=== PATIENT | male | born 1945 | race Caucasian/White ===

== ENCOUNTER 2024-08-17 15:59 | Emergency (ER) | payer MEDICARE, OTHER, MEDICAID, SELFPAY ==
[2024-08-17 16:00] VITALS: BP 158/70; PULSE 72; RESP 17; TEMP 36.5; O2SAT 100
--- NOTE | 2024-08-17 16:09 | ED_ITS ---
Documented by User: Gerardo Mccollum DO 08/18/24 06:59 HPI - General Adult General: Chief complaint: Fall Stated complaint: fall, lac Time Seen by Provider: 08/17/24 16:03 History of Present Illness: 79-year-old with a history of dementia f ell at the nursing comes in he has a 5 cm laceration on the left forehead. No report of loss conscious no vomiting he is not on any anticoagulants. Has severe dementia and is not able to articulate anything that is sensible. Related Data Home Medications Medication Instructions Recorded Confirmed citalopram 40 mg tablet 40 mg PO DAILY 05/02/21 05/02/21 magnesium 200 mg tablet 200 mg PO DAILY 05/02/21 05/02/21 metformin 500 mg tablet 500 mg PO DAILY 05/02/21 05/02/21 omeprazole magnesium 20 mg 20 mg PO DAILY 05/02/21 05/02/21 tablet,delayed release (Prilosec OTC) tamsulosin 0.4 mg capsule 0.4 mg PO DAILY 05/02/21 05/02/21 Allergies Allergy/AdvReac Type Severity Reaction Status Date / Time ciprofloxacin [From Cipro] Allergy Unknown Verified 05/02/21 07:34 diphenhydramine Allergy Unknown Verified 05/02/21 07:34 [From Benadryl] PFSH ED PFSH: Medical History CA of prostate Balanitis History of radiation therapy Surgical History History of carpal tunnel surgery History of vasectomy History of cataract surgery History of appendectomy Social History Smoking and tobacco/nicotine status: former use of tobacco/nicotine Alcohol intake: never Substance/Drug Use: never Marital status: Current occupational status: employed and retired Physical Exam Const: ORIENTATION/CONSCIOUSNESS: Yes awake HENMT: COMMON NORMALS: normocephalic and hearing grossly normal bilaterally HEAD & SCALP: normocephalic OTHER: 5 cm forehead laceration slight gaping b leeding easily controlled with direct pressure Resp: COMMON NORMALS: normal respiratory effort, No retractions, No use of accessory muscles and clear to auscultation bilaterally AUSCULTATION: clear to auscultation bilaterally Cardio: COMMON NORMALS: regular rate, regular rhythm and No murmurs present (Cardio) RATE: regular rate RHYTHM: regular rhythm GI: COMMON NORMALS: Soft to palpation and No hepatosplenomegaly present AUSCULTATION: Yes normoactive bowel sounds PALPATION: Yes Soft to palpation, No Tenderness to palpation present (GI), No Guarding due to palpation present (GI) and Yes No hepatosplenomegaly present Extremity: COMMON NORMALS: normal to inspection, capillary refill normal, no clubbing, cyanosis or edema, no calf tenderness and no pedal edema Skin: COMMON NORMALS: no rashes or lesions noted GENERAL SKIN EXAM: no rashes or lesions noted Procedures Laceration Laceration 1: Site: face Side (If applicable): left Size (cm): 5 Description: linear Depth: simple, single layer Local Anesthetic: with epi Amount of anesthesia used (mL): 3 Pre-repair: wound explored and irrigated extensively Skin layer closed with: nylon Size (cm): 5-0 Number of sutures: 1 Technique: running Course Vital Signs: Vital signs: Vital Signs Temperature 97.7 F 08/17/24 16:00 Pulse Rate 71 08/17/24 22:00 Respiratory Rate 17 08/17/24 16:00 Blood Pressure 124/70 08/17/24 22:00 Pulse Oximetry 96 08/17/24 22:00 Oxygen Delivery Me thod Room Air 08/17/24 17:07 MDM - General Adult Medical Decision Making Laceration repaired. CT head and neck are pending. Discussed with Dr. Amaya he will follow-up on the discharge once the CT head and neck are completed and reviewed. Discussed the CT scan with Dr. Gomze neurosurgeon at [facility] he was able to compare the CT scan with 1 done approximately year ago he said he had a chronic subdural hematoma then although was slightly smaller. He says he has lots of room for expansion and this is a very mild midline shift. He states no further treatment needed just observation. If desired he can see him in the clinic but he would not admit him for observation in the hospital. Medical Records I reviewed the patient's medical records. Lab Data I reviewed the patient's lab results. Radiology Impressions Cervical Spine CT 08/17/24 16:14 IMPRESSION: No evidence of acute fracture. Head CT 08/17/24 16:14 IMPRESSION: 1. Chronic 12 mm left subdural hematoma with mild mass effect including 4 mm of [id number]-[id number] midline shift. 2. Senescent changes. Discharge Plan Discharge Patient Disposition: Home Clinical Impression: Face lacerations, Fall, Chronic subdural hematoma Condition: Stable Prescriptions: No Action citalopram 40 mg tablet 40 mg PO DAILY magnesium 200 mg tablet 200 mg PO DAILY tamsulosin 0.4 mg capsule 0.4 mg PO DAILY metformin 500 mg tablet 500 mg PO DAILY omeprazole magnesium [Prilosec OTC] 20 mg tablet,delayed release (DR/EC) 20 mg PO DAILY Discharge Orders: Discharge ED (Routine); Ordered 08/17/24 Ordered By: Gerardo Mccollum Referrals: Barron Monet [Primary Care Provider] - Discharge Diet: Usual diet Discharge Activity: Resume usual activity Patient Instructions: Opioid Safety, Pain Management Activity Restrictions/Additional Instructions: Thank you for choosing [facility] for your healthcare needs today. It is very important that you follow up as instructed or that you return to the Emergency Department should you have concerns or if your condition changes or worsens in any way. You are seen emergency room after a fall. Laceration of the forehead was sutured that you should be removed in 5 to 7 days. Apply jrca-nul-xrqtvzv topical antibiotic ointment twice a day to the wound until the sutures are remov ed. Coding Level of Care Code ED Perishable Fruit Inspector for Chg Fwd Documented by User: Julio Amaya DO 08/18/24 01:25 HPI - General Adult General: Chief complaint: Fall Stated complaint: fall, lac Time Seen by Provider: 08/17/24 16:03 Related Data Home Medications Medication Instructions Recorded Confirmed citalopram 40 mg tablet 40 mg PO DAILY 05/02/21 05/02/21 magnesium 200 mg tablet 200 mg PO DAILY 05/02/21 05/02/21 metformin 500 mg tablet 500 mg PO DAILY 05/02/21 05/02/21 omeprazole magnesium 20 mg 20 mg PO DAILY 05/02/21 05/02/21 tablet,delayed release (Prilosec OTC) tamsulosin 0.4 mg capsule 0.4 mg PO DAILY 05/02/21 05/02/21 Allergies Allergy/AdvReac Type Severity Reaction Status Date / Time ciprofloxacin [From Cipro] Allergy Unknown Verified 05/02/21 07:34 diphenhydramine Allergy Unknown Verified 05/02/21 07:34 [From Benadryl] PFS ED PFSH: Medical History CA of prostate Balanitis History of radiation therapy Surgical History History of carpal tunnel surgery History of vasectomy History of cataract surgery History of appendectomy Social History Smoking and tobacco/nicotine status: former use of tobacco/nicotine Alcohol intake: never Substance/Drug Use: never Marital status: Current occupational status: employed and retired Course Vital Signs: Vital signs: Vital Signs Temperature 97.7 F 08/17/24 16:00 Pulse Rate 71 08/17/24 22:00 Respiratory Rate 17 08/17/24 16:00 Blood Pressure 124/70 08/17/24 22:00 Pulse Oximetry 96 08/17/24 22:00 Oxygen Delivery Me thod Room Air 08/17/24 17:07 MDM - General Adult Medical Decision Making Discussed the CT scan with Dr. Gomez neurosurgeon at [facility] he was able to compare the CT scan with 1 done approximately year ago he said he had a chronic subdural hematoma then although was slightly smaller. He says he has lots of room for expansion and this is a very mild midline shift. He states no further treatment needed just observation. If desired he can see him in the clinic but he would not admit him for observation in the hospital. Lab Data Radiology Impressions Cervical Spine CT 08/17/24 16:14 IMPRESSION: No evidence of acute fracture. Head CT 08/17/24 16:14 IMPRESSION: 1. Chronic 12 mm left subdural hematoma with mild mass effect including 4 mm of lhqh-xw-fwyxj midline shift. 2. Senescent changes. All radiology interpretation(s) finalized by discharge Discharge Plan Discharge Patient Disposition: Home Clinical Impression: Face lacerations, Fall, Chronic subdural hematoma Condition: Stable Prescriptions: No Action citalopram 40 mg tablet 40 mg PO DAILY magnesium 200 mg tablet 200 mg PO DAILY tamsulosin 0.4 mg capsule 0.4 mg PO DAILY metformin 500 mg tablet 500 mg PO DAILY omeprazole magnesium [Prilosec OTC] 20 mg tablet,delayed release (DR/EC) 20 mg PO DAILY Discharge Orders: Discharge ED (Routine); Ordered 08/17/24 Ordered By: Gerardo Mccollum Referrals: Barron Monet [Primary Care Provider] - Discharge Diet: Usual diet Discharge Activity: Resume usual activity Patient Instructions: Opioid Safety, Pain Management Activity Restrictions/Additional Instructions: Thank you for choosing [facility] for your healthcare needs today. It is very important that you follow up as instructed or that you return to the Emergency Department should you have concerns or if your condition changes or worsens in any way. You are seen emergency room after a fall. Laceration of the forehead was sutured that you should be removed in 5 to 7 days. Apply osql-zod-kauisey topical antibiotic ointment twice a day to the wound until the sutures are removed. Coding Level of Care Code ED Perishable Fruit Inspector for Deepti Dennis
--- NOTE | 2024-08-17 16:14 | CTR_ITS ---
PROCEDURE INFORMATION: Exam: CT Cervical Spine Without Contrast Exam date and time: 08/17/2024 5:28 PM Age: 79 years old Clinical indication: Injury or trauma; Fall; Blunt trauma and laceration; Not specified; Injury date: 08/17/2024 TECHNIQUE: Imaging protocol: Computed tomography of the cervical spine without contrast. Radiation optimization: All CT scans at this facility use at least one of these dose optimization techniques: automated exposure control; mA and/or kV adjustment per patient size (includes targeted exams where dose is matched to clinical indication); or iterative reconstruction. COMPARISON: CT head wo con* [id number] 08/17/2024 5:28 PM RADIATION DOSE METRICS: Total DLP (mGy-cm): 203.9 FINDINGS: Bones: Mild dextroscoliosis of the cervical spine. Mild straightening of the normal cervical lordosis. Alignment is otherwise intact. Moderate multilevel degenerative change. No evidence of acute fracture. Lungs: Minimal biapical scarring. Soft tissues: The soft tissues are within normal limits. CT/CT cervical spin wo con* [id number] IMPRESSION: No evidence of acute fracture.
--- NOTE | 2024-08-17 16:14 | CTR_ITS ---
PROCEDURE INFORMATION: Exam: CT Head Without Contrast Exam date and time: 08/17/2024 5:28 PM Age: 79 years old Clinical indication: Injury or trauma; Fall; Work related; Blunt trauma (contusions or hematomas) and laceration; Consciousness not specified; Without residual foreign body; Forehead; Injury date: 08/17/2024 TECHNIQUE: Imaging protocol: Computed tomography of the head without contrast. Radiation optimization: All CT scans at this facility use at least one of these dose optimization techniques: automated exposure control; mA and/or kV adjustment per patient size (includes targeted exams where dose is matched to clinical indication); or iterative reconstruction. COMPARISON: CT head wo con* [id number] 02/12/2019 5:06 PM RADIATION DOSE METRICS: Total DLP (mGy-cm): 1196.7 FINDINGS: Brain: Low-density left subdural collection with trace hyperdensity dependently most consistent with chronic subdural hematoma measuring up to 12 mm. No evidence of acute intracranial hemorrhage. Mild mass effect with 4 mm of qoue-lb-mdwol midline shift. Moderate global atrophy. Zavi-qc-sfpwobvq deep white matter hypodensities typical of small vessel chronic ischemic disease. Cerebral ventricles: Mildly dilated secondary to atrophy. Paranasal sinuses: Minimal debris in the central frontal sinus. The paranasal sinuses are otherwise clear. Mastoid air cells: The mastoid air cells are clear. Bones: No acute osseous abnormalities are seen. Soft tissues: The soft tissues are within normal limits. CT/CT head wo con* [id number] IMPRESSION: 1. Chronic 12 mm left subdural hematoma with mild mass effect including 4 mm of pkho-qk-sjylw midline shift. 2. Senescent changes.
[2024-08-17 16:16] VITALS: BP 158/70; PULSE 58; O2SAT 100
[2024-08-17] MEDS: lidocaine-epi 1% 20 mL INJ INJECTION (17:05)
[2024-08-17 17:07] VITALS: BP 131/61; PULSE 64; O2SAT 100
[2024-08-17] MEDS: tetanus-dipt-pertussis 0.5 mL SDV IM (18:01)
[2024-08-17 19:30] VITALS: PULSE 67; O2SAT 98
[2024-08-17 21:00] VITALS: PULSE 62; O2SAT 100
--- NOTE | 2024-08-17 21:59 | PC.NURSE ---
This nurse spoke with Vi Li LPN upon discharge. Discharge instructions provided, denied further questions.
[2024-08-17 22:00] VITALS: BP 124/70; PULSE 71; O2SAT 96
== END 2024-08-17 22:01 | disposition home or self-care (01) ==
PROVIDERS: Emergency Provider Family Medicine; PCP Family Medicine
DX: S01.81XA Laceration without foreign body of other part of head, initial encounter (principal); W19.XXXA Unspecified fall, initial encounter; S06.5XAA Traumatic subdural hemorrhage with loss of consciousness status unknown, initial encounter
CPT/HCPCS: 12013; 70450; 72125; 90471; 90715; 99284

== ENCOUNTER 2024-11-29 11:49 | Emergency (ER) | payer MEDICARE, OTHER, MEDICAID, SELFPAY ==
[2024-11-29 11:53] VITALS: BP 162/86; PULSE 78; RESP 16; TEMP 36.4; O2SAT 95
--- NOTE | 2024-11-29 11:57 | XRR_ITS ---
PROCEDURE INFORMATION: Exam: XR Right Hand Exam date and time: 11/29/2024 12:14 PM Age: 79 years old Clinical indication: Injury or trauma; Fall; Blunt trauma (contusions or hematomas); Hand; Right TECHNIQUE: Imaging protocol: Radiologic exam of the right hand. Views: 3 or more views. COMPARISON: No relevant prior studies available. FINDINGS: Bones/joints: There is no fracture or joint dislocation. Soft tissues: Normal. XR/XR hand RT min 3V* [id number] IMPRESSION: No fracture.
--- NOTE | 2024-11-29 11:57 | CTR_ITS ---
PROCEDURE INFORMATION: Exam: CT Cervical Spine Without Contrast Exam date and time: 11/29/2024 12:08 PM Age: 79 years old Clinical indication: Injury or trauma; Fall; Blunt trauma TECHNIQUE: Imaging protocol: Computed tomography of the cervical spine without contrast. Radiation optimization: All CT scans at this facility use at least one of these dose optimization techniques: automated exposure control; mA and/or kV adjustment per patient size (includes targeted exams where dose is matched to clinical indication); or iterative reconstruction. COMPARISON: CT cervical spin wo con* [id number] 08/17/2024 5:28 PM RADIATION DOSE METRICS: Total DLP (mGy-cm): 256.9 FINDINGS: Bones: There is no fracture or facet subluxation. Intervertebral disc narrowing is seen at C4-C5 and C5-C6 level. Lungs: Lung apices are normal. Soft tissues: Unremarkable. CT/CT cervical spin wo con* [id number] IMPRESSION: No fracture. DJD as described
--- NOTE | 2024-11-29 11:57 | CTR_ITS ---
PROCEDURE INFORMATION: Exam: CT Head Without Contrast Exam date and time: 11/29/2024 12:08 PM Age: 79 years old Clinical indication: Injury or trauma; Fall; Blunt trauma (contusions or hematomas) TECHNIQUE: Imaging protocol: Computed tomography of the head without contrast. Radiation optimization: All CT scans at this facility use at least one of these dose optimization techniques: automated exposure control; mA and/or kV adjustment per patient size (includes targeted exams where dose is matched to clinical indication); or iterative reconstruction. COMPARISON: CT head wo con* [id number] 08/17/2024 5:28 PM RADIATION DOSE METRICS: Total DLP (mGy-cm): 1227.9 FINDINGS: Brain: The left convexity subdural collection has shown interval increase in size now measuring 1.9 cm. There is new hyperdensity in the dependent portion suggesting acute subdural hematoma component. There is midline shift towards the right proximally 3 mm. This is stable. Cortical atrophy is present. Periventricular hypodensities are nonspecific and likely representing mild small vessel ischemic changes. No significant change in midline shift to the right. Cerebral ventricles: No ventriculomegaly. Paranasal sinuses: Visualized sinuses are unremarkable. No fluid levels. Mastoid air cells: Visualized mastoid air cells are well aerated. Orbital cavities: Orbits are unremarkable. Bones: The osseous structure is unremarkable. Soft tissues: Frontal soft tissue swelling. CT/CT head wo con* [id number] IMPRESSION: 1. Left convexity chronic subdural collection has shown interval increase in size as described. There is new subdural hematoma component. No significant change in midline shift to the right. 2. Cortical atrophy is present. 3. Likely mild small-vessel ischemic changes.
--- NOTE | 2024-11-29 11:59 | W.ED.FALL ---
HPI - Fall General: Chief Complaint: Fall Stated Complaint: facial abrasions s/p fall Time Seen by Provider: 11/29/24 11:50 Source: EMS Mode of arrival: EMS Limitations: altered mental status History of Present Illness: 79[facility]. Patient's in the dementia unit has Alzheimer's and was found down unwitnessed fall he does have abrasions to his head and his right knuckle patient is nonverbal due to his severe dementia and this is his baseline. No other injuries noted Related Data Home Medications ?Medication ?Instructions ?Recorded ?Confirmed acetaminophen 325 mg tablet 650 mg PO Q6H PRN Pain 11/29/24 11/29/24 bisacodyl 10 mg rectal suppository 10 mg HI DAILY 11/29/24 11/29/24 docusate sodium 100 mg tablet 100 mg PO BID 11/29/24 11/29/24 fluticasone propionate 50 2 spray intranasal DAILY 11/29/24 11/29/24 mcg/actuation nasal spray,suspension magnesium hydroxide 400 mg/5 mL 30 ml PO DAILY PRN Constipation 11/29/24 11/29/24 oral suspension (Milk of Magnesia) mirtazapine 7.5 mg tablet 7.5 mg PO QPM 11/29/24 11/29/24 ondansetron HCl 4 mg tablet 4 mg PO Q6H 11/29/24 11/29/24 oxcarbazepine 150 mg tablet 75 mg PO BID 11/29/24 11/29/24 pantoprazole 40 mg tablet,delayed 40 mg PO DAILY 11/29/24 11/29/24 release polyethylene glycol 3350 17 17 g PO DAILY 11/29/24 11/29/24 gram/dose oral powder quetiapine 100 mg tablet 100 mg PO DAILY 11/29/24 11/29/24 quetiapine 50 mg tablet 50 mg PO QPM 11/29/24 11/29/24 sennosides 8.6 mg tablet (senna) 8.6 mg PO DAILY 11/29/24 11/29/24 sertraline 25 mg tablet 25 mg PO DAILY 11/29/24 11/29/24 sodium phosphates 19 gram-7 118 ml HI DAILY PRN Constipation 11/29/24 11/29/24 gram/118 mL enema (Enema) tamsulosin 0.4 mg capsule 0.4 mg PO DAILY 11/29/24 11/29/24 tramadol 50 mg tablet 50 mg PO TID 11/29/24 11/29/24 Allergies Allergy/AdvReac Type Severity Reaction Status Date / Time ciprofloxacin (From Cipro) Allergy Unknown Verified 05/02/21 07:34 diphenhydramine (From Allergy Unknown Verified 05/02/21 07:34 Benadryl) Review of Systems General: Reports: ROS unobtainable due to mental status PFSH ED PFSH: Medical History CA of prostate Balanitis History of radiation therapy Surgical History History of carpal tunnel surgery History of vasectomy History of cataract surgery History of appendectomy Social History Smoking and tobacco/nicotine status: former use of tobacco/nicotine Alcohol intake: never Substance/Drug Use: never Marital status: Current occupational status: employed and retired Physical Exam Const: COMMON NORMALS: healthy appearing; negative for patient oriented x3 HENMT: COMMON NORMALS: normocephalic HEAD & SCALP: normocephalic OTHER: abrasion to forehead Eye: COMMON NORMALS: Equal, round and reactive pupils present and EOMs intact bilaterally PUPIL: Yes Equal, round and reactive pupils present Neck/C-Spine: COMMON NORMALS: full ROM and supple Chest: COMMONS NORMALS: normal inspection of the chest Resp: COMMON NORMALS: normal respiratory effort, No retractions, No use of accessory muscles and clear to auscultation bilaterally AUSCULTATION: clear to auscultation bilaterally Cardio: COMMON NORMALS: regular rate, regular rhythm and No murmurs present (Cardio) RATE: regular rate RHYTHM: regular rhythm GI: COMMON NORMALS: Normal to inspection, nondistended, normoactive bowel sounds present, Soft to palpation, non-tender and no masses PALPATION: Yes Soft to palpation Extremity: NARRATIVE EXTREMITY EXAM: contusion to right hand Neuro: COMMON NORMALS: moves all extremities and no focal motor deficits; negative for patient oriented x3 Psych: COMMON NORMALS: negative for mental status grossly normal Skin: COMMON NORMALS: no rashes or lesions noted and no wounds GENERAL SKIN EXAM: no rashes or lesions noted Course Vital Signs: Vital signs: Vital Signs Temperature 97.6 F 11/29/24 11:53 Pulse Rate 78 11/29/24 11:53 Respiratory Rate 16 11/29/24 11:53 Blood Pressure 162/86 11/29/24 11:53 Pulse Oximetry 95 11/29/24 11:53 Oxygen Delivery Me thod Room Air 11/29/24 11:53 MDM - Fall Medical Decision Making Patient presents for his subdural hematoma after a fall he has chronic subdural but also has a new acute subdural I spoke to his daughter who is power of automotive paint technician she did want treatment I spoke to [facility] will transfer there for higher level of care of neurosurgery Lab Data Radiology Impressions Cervical Spine CT 11/29/24 11:57 IMPRESSION: No fracture. DJD as described Hand X-Ray 11/29/24 11:57 IMPRESSION: No fracture. Head CT 11/29/24 11:57 IMPRESSION: 1. Left convexity chronic subdural collection has shown interval increase in size as described. There is new subdural hematoma component. No significant change in midline shift to the right. 2. Cortical atrophy is present. 3. Likely mild small-vessel ischemic changes. ADDENDUM: 11/29/24 1236 COMMENT: THIS REPORT CONTAINS FINDINGS THAT MAY BE CRITICAL TO PATIENT CARE. The exam findings were verbally communicated by me to MACEY HERNANDEZ via telephone conference at 12:34 PM SALES PERSON on 11/29/2024. The findings were acknowledged and understood. All radiology interpretation(s) finalized by discharge Critical Care Time Critical Care Time: Critical Care Time: Yes Total Critical Care Time: 35 Attestation: The high probability of a clinically significant, sudden or life threatening deterioration of the patient's neuro system(s) required my full and direct attention, intervention and personal management. The critical care time is as shown. This time is in addition to time spent performing any reported procedures but includes the following: [x] Data and vital sign review and interpretation [x] Patient assessment, examination and intervention [x] Documentation [x] Medication orders and management Discharge Plan Discharge Patient Disposition: Admitted As Inpatient Clinical Impression: Subdural hematoma Condition: Stable Prescriptions: No Action oxcarbazepine 150 mg tablet 75 mg PO BID sennosides [senna] 8.6 mg Tablet 8.6 mg PO DAILY acetaminophen 325 mg Tablet 650 mg PO Q6H PRN (Reason: Pain) ondansetron HCl 4 mg tablet 4 mg PO Q6H tramadol 50 mg tablet 50 mg PO TID quetiapine 100 mg tablet 100 mg PO DAILY magnesium hydroxide [Milk of Magnesia] 400 mg/5 mL Suspension 30 ml PO DAILY PRN (Reason: Constipation) tamsulosin 0.4 mg capsule 0.4 mg PO DAILY bisacodyl 10 mg Suppository 10 mg HI DAILY pantoprazole 40 mg tablet,delayed release (DR/EC) 40 mg PO DAILY Enema 19-7 gram/118 mL Enema 118 ml HI DAILY PRN (Reason: Constipation) sertraline 25 mg tablet 25 mg PO DAILY polyethylene glycol 3350 17 gram/dose Powder 17 g PO DAILY fluticasone propionate 50 mcg/actuation spray,suspension 2 spray INTRANASAL DAILY docusate sodium 100 mg Tablet 100 mg PO BID mirtazapine 7.5 mg tablet 7.5 mg PO QPM quetiapine 50 mg tablet 50 mg PO QPM Referrals: Barron Monet [Primary Care Provider] - Print Language: Ukrainian Coding Level of Care Code ED Lumber Tailer for Deepti Dennis
[2024-11-29 13:32] LABS: Basophils # 0.1 10^3/uL (0.0-0.1); Basophils % 0.5 %; Eosinophils # 0.1 10^3/uL (0.0-0.8); Eosinophils % 0.9 %; Hematocrit 43.4 % (37-53); Lymphocytes # 2.2 10^3/uL (0.8-4.8); Lymphocytes % 22.2 %; Mean Corpuscular HGB Conc 32.9 g/dL (30-55); Mean Corpuscular Hemoglobin 29.1 pg (27-33); Mean Corpuscular Volume 88.2 fl (82-101); Mean Platelet Volume 9.5 fL (7.4-10.4); Monocytes # 0.8 10^3/uL (0.2-0.9); Monocytes % 8.2 %; Neutrophils # 6.81 10^3/uL (1.8-7.7); Neutrophils % 67.8 %; Nucleated Red Blood Cells % 0 %; Platelet Count 220 10^3/cmm (157-399); Red Blood Count 4.92 10^6/uL (3.85-5.65); Red Cell Distribution Width 13.2 % (12.1-15.1); White Blood Count 10.04 10^3/uL (3.29-11.43)
[2024-11-29 13:38] VITALS: BP 114/78; PULSE 69; O2SAT 95
[2024-11-29 13:45] LABS: INR 0.94 (0.8-1.2)
[2024-11-29 13:50] LABS: Alanine Aminotransferase 9 U/L (0-41); Albumin Level 3.7 g/dL (3.5-5.2); Alkaline Phosphatase 97 U/L (40-130); Anion Gap 15.2 (5-19); Aspartate Amino Transferase 16 U/L (0-40); Blood Urea Nitrogen 27 mg/dL (8-23); Calcium 9.4 mg/dL (8.5-10.5); Carbon Dioxide 22 mmol/L (22-29); Chloride 102 mmol/L (98-107); Globulin 3.3 g/dL (1.3-4.6); Glucose 132 mg/dL (65-115); Osmolality Calculated 287 mOsm/kg (285-295); Potassium 4.2 mmol/L (3.5-5.1); Sodium 135 mmol/L (136-145); Total Bilirubin 0.6 mg/dL (0.15-1.2)
[2024-11-29 14:40] VITALS: BP 132/81; PULSE 67; O2SAT 97
== END 2024-11-29 14:42 | disposition admitted as inpatient to this hospital (09) ==
PROVIDERS: Emergency Provider Emergency Medicine; PCP Family Medicine
DX: S06.5X0A Traumatic subdural hemorrhage without loss of consciousness, initial encounter (principal); Z87.891 Personal history of nicotine dependence; W19.XXXA Unspecified fall, initial encounter
CPT/HCPCS: 36415; 70450; 72125; 73130; 80053; 85025; 85610; 99284